=== PATIENT | female | born 1990 | race African-American/Black ===

== ENCOUNTER 2016-11-15 15:45 | Emergency (ER) | payer SELFPAY ==
[~2016-11-15] VITALS: Ht 152.4 cm; Wt 59.1 kg
[~2016-11-15 15:45] MED LIST: DEPOP150I IM
[2016-11-15] MEDS ORDERED: HYDR-309 PO (16:07)
[2016-11-15] MEDS ORDERED: MUSCLE RELAXANT PO (16:10)
[2016-11-15] MEDS ORDERED: IBUP-1547 PO (16:10)
[2016-11-15] MEDS: SODIUM CHLORIDE 0.9% 1,000 ML IV ONE (16:54)
[2016-11-15 16:55] LABS: BASOPHILS % (AUTO) 0.7 % (0.0-2.0); EOSINOPHILS % (AUTO) 0.5 % (1.0-6.0); HEMATOCRIT 41.6 % (36-46); HEMOGLOBIN 13.4 g/dL (12.0-16.0); LYMPHOCYTES # (AUTO) 1.7 K/uL (1.0-4.8); LYMPHOCYTES % (AUTO) 40.9 % (22.0-44.0); MEAN CORPUSCULAR HEMOGLOBIN 27.4 pg (26.0-34.0); MEAN CORPUSCULAR HGB CONC 32.2 G/dL (31.0-37.0); MEAN CORPUSCULAR VOLUME 85 fL (80-100); MONOCYTES # (AUTO) 0.4 K/uL (0.1-1.0); NEUTROPHILS % (AUTO) 47.9 % (40.0-70.0); PLATELET COUNT (AUTO) 189 K/uL (150-450); RED CELL DISTRIBUTION WIDTH 12.8 % (11.5-14.5); WHITE BLOOD COUNT (AUTO) 4.2 K/uL (4.5-11.0)
[2016-11-15 17:20] LABS: ANION GAP 12 mmol/L (8-16); CALCIUM, TOTAL 9.3 mg/dL (8.8-10.5); CARBON DIOXIDE 24 mmol/L (22-29); CHLORIDE 102 mmol/L (98-107); CREATININE 0.94 mg/dL (0.60-1.30); GLOMERULAR FILTR. RATE CALC > 60 mL/min (>60); POTASSIUM 3.5 mmol/L (3.5-5.1); SODIUM SERUM 138 mmol/L (136-145); UREA NITROGEN, BLOOD 9 mg/dL (7-18)
[2016-11-15 17:26] LABS: ALANINE AMINOTRANSFERASE 22 U/L (12-78); ALBUMIN 3.9 g/dL (3.4-5.0); ASPARTATE AMINOTRANSFERASE 17 U/L (15-37); BILIRUBIN,TOTAL 0.3 mg/dL (0.1-1.0); TOTAL PROTEIN, SERUM 7.8 g/dL (6.4-8.2)
[2016-11-15 19:01] VITALS: BP 144/69
== END 2016-11-15 19:03 | disposition home or self-care (01) ==
LOC: EMS 15:46
DX: R06.02 Shortness of breath (principal); I10 Essential (primary) hypertension
CPT/HCPCS: 36415; 71020; 80053; 84484; 84703; 85025; 85379; 93005; 96360; 99285; J7030